=== PATIENT | female | born 2000 | race Caucasian/White ===

== ENCOUNTER 2020-09-22 21:26 | Emergency (ER) | payer OTHER ==
[~2020-09-22] VITALS: Ht 167.6 cm; Wt 77.3 kg
[2020-09-22 21:26] VITALS: BP 105/55
[2020-09-22] MEDS ORDERED: CALCTAB89 PO (21:34)
[2020-09-22] MEDS ORDERED: PREN1CHW PO (21:34)
== END 2020-09-22 22:53 | disposition home or self-care (01) ==
LOC: M ED 21:26
DX: J02.9 Acute pharyngitis, unspecified (principal); Z20.828 Contact with and (suspected) exposure to other viral communicable diseases; Z88.0 Allergy status to penicillin
CPT/HCPCS: 87880; 99284; U0003

== ENCOUNTER 2021-03-08 13:55 | Emergency (ER) | payer OTHER ==
[~2021-03-08] VITALS: Ht 167.6 cm; Wt 86.8 kg
[~2021-03-08 13:55] MED LIST: CALCTAB89 PO; PREN1CHW PO
[2021-03-08 13:56] VITALS: BP 114/62
[2021-03-08] MEDS ORDERED: LATU40TA PO (14:50)
[2021-03-08] MEDS ORDERED: LAMI25TA PO (14:54)
== END 2021-03-08 15:15 | disposition home or self-care (01) ==
LOC: M ED 13:55
DX: F33.9 Major depressive disorder, recurrent, unspecified (principal); S50.811A Abrasion of right forearm, initial encounter; S50.812A Abrasion of left forearm, initial encounter; X78.9XXA Intentional self-harm by unspecified sharp object, initial encounter; Y92.89 Other specified places as the place of occurrence of the external cause; Z79.899 Other long term (current) drug therapy

== ENCOUNTER → 2022-05-20 | Outpatient (CLI) | payer OTHER ==
[~2022-05-20] MED LIST changes: +CELE20TA PO; +CITA20TA7 PO; +FERR325T3 PO; +LAMI25TA PO; +LAMO100T3 PO; +LATU1TAB PO; +LATU40TA2 PO; +PARA1IUD IU
== END ==
LOC: M LABSMTC 09:24
PROVIDERS: ATTEND Anesthesiology
DX: Z01.812 Encounter for preprocedural laboratory examination (principal); Z20.822 Contact with and (suspected) exposure to COVID-19

== ENCOUNTER 2022-05-23 06:07 | Observation (INO) | payer OTHER ==
[2022-05-23] VITALS (7 sets, daily range): BP systolic 107–113; BP diastolic 56–73
[~2022-05-23] VITALS: Ht 167.6 cm; Wt 89.8 kg
[2022-05-23] MEDS ORDERED: LR 1,000 ML IV SCH ×2 (07:10→14:40)
[2022-05-23] MEDS ORDERED: HEPARIN SOD (PORCINE) 5000UNITS/ML 1ML VIAL/SYRINGE SQ ONE (07:10)
[2022-05-23] MEDS ORDERED: CLINDAMYCIN 900 MG in IV 1 EA IV ONE ×2 (07:55→20:00)
[2022-05-23] MEDS ORDERED: LIDOCAINE 2% 100MG/5ML SDV (FOR ANES.) As Ordered ONE ×3 (08:44→11:43)
[2022-05-23] MEDS ORDERED: ROCURONIUM BROMIDE 50 MG/5 ML VIAL As Ordered ONE ×2 (08:44→12:10)
[2022-05-23] MEDS ORDERED: propofoL 200 MG/20 ML VIAL As Ordered ONE ×2 (08:44→14:14)
[2022-05-23] MEDS ORDERED: dexameTHASONE 4 MG/ML 1ML VIAL (J1100 PER 1MG) As Ordered ONE (08:45)
[2022-05-23] MEDS ORDERED: ONDANSETRON 4MG/2ML VIAL As Ordered ONE ×2 (08:45→15:10)
[2022-05-23] MEDS ORDERED: fentaNYL 100 MCG/2 ML INJECTION As Ordered ONE ×3 (08:45→15:10)
[2022-05-23] MEDS ORDERED: MIDAZOLAM INJ 2MG/2ML VIAL (J2250 PER 1MG) As Ordered ONE (08:45)
[2022-05-23] MEDS ORDERED: LACRILUBE (AKWA TEARS) OPHTH OINT 3.5 GM As Ordered ONE (09:24)
[2022-05-23] MEDS ORDERED: BUPIVACAINE HCL 0.25% 30ML VIAL As Ordered ONE (09:55)
[2022-05-23] MEDS ORDERED: GENTAMICIN SULF 80MG/2ML VIAL As Ordered ONE (09:55)
[2022-05-23] MEDS ORDERED: LIDOCAINE 1% MDV 20ML VIAL As Ordered ONE (09:55)
[2022-05-23] MEDS ORDERED: EPINEPHrine INJ 1 MG/ML 1ML AMP As Ordered ONE (09:56)
[2022-05-23] MEDS ORDERED: BUPIVACAINE LIPOSOME/PF 1.3% 20ML VIAL (13.3MG/ML)(EXPAREL) As Ordered ONE (09:56)
[2022-05-23] MEDS ORDERED: KETOROLAC 60MG 2ML VIAL As Ordered ONE (10:29)
[2022-05-23] MEDS ORDERED: ACETAMINOPHEN 1000MG 100ML IV BTL (OFIRMEV) (J0131 PER 10MG) As Ordered ONE (14:17)
[2022-05-23] MEDS ORDERED: SUGAMMADEX SODIUM 500 MG/5 ML VIAL (BRIDION) As Ordered ONE (14:23)
[2022-05-23] MEDS ORDERED: METOCLOPRAMIDE INJ 10MG/2ML VIAL (J2765 PER 1) As Ordered ONE (14:23)
[2022-05-23] MEDS ORDERED: MORPHINE 2 MG/ML 1ML VIAL IV PRN (14:40)
[2022-05-23] MEDS ORDERED: ONDANSETRON 4MG/2ML VIAL IV PRN ×2 (14:40→15:15)
[2022-05-23] MEDS ORDERED: oxyCODONE 5MG TAB PO PRN (14:40)
[2022-05-23] MEDS: fentaNYL 100 MCG/2 ML INJECTION IV PRN ×2 (15:33→15:39)
[2022-05-23] MEDS: LR 1,000 ML IV SCH (17:13)
[2022-05-23] MEDS: ACETAMINOPHEN TAB 650MG DOSE (2X325MG) PO PRN (18:53)
[2022-05-23] MEDS: traMADol 50 MG TAB PO PRN (21:33)
[2022-05-24 01:00] VITALS: BP 106/55
[2022-05-24 02:00] VITALS: BP 109/61
[2022-05-24] MEDS: traMADol 50 MG TAB PO PRN (03:43)
[2022-05-24] MEDS: LR 1,000 ML IV SCH (05:24)
[2022-05-24] MEDS: ACETAMINOPHEN TAB 650MG DOSE (2X325MG) PO PRN (05:24)
[2022-05-24 06:00] VITALS: BP 117/67
[2022-05-24] MEDS ORDERED: MORPHINE 4 MG/ML 1ML VIAL/SYRINGE IV ONE (06:40)
[2022-05-24] MEDS ORDERED: PERCOCET 5MG/325MG TAB PO PRN ×2 (08:20)
[2022-05-24] MEDS ORDERED: PERCOCET PO (09:11)
[2022-05-24 10:00] VITALS: BP 116/61
== END 2022-05-24 12:57 | disposition home or self-care (01) ==
LOC: M SDC 06:07 → M MS5PR 06:08 → MERGE 07:30 → M MS5PR 15:55
PROVIDERS: ADMIT Plastic Surgery Surgery of the Hand; ATTEND Plastic Surgery Surgery of the Hand
DX: N62 Hypertrophy of breast (principal); F43.10 Post-traumatic stress disorder, unspecified; F41.9 Anxiety disorder, unspecified; F32.9 Major depressive disorder, single episode, unspecified; F12.10 Cannabis abuse, uncomplicated; Z88.0 Allergy status to penicillin; Z79.899 Other long term (current) drug therapy
CPT/HCPCS: 19318; 81025; 88300; 88305; 96365; 96375; C9290; J0131; J0171; J1100; J1580; J1644; J1885; J2250; J2270; J2405; J2765; J3010

== ENCOUNTER 2022-12-19 14:42 | Emergency (ER) | payer OTHER ==
[~2022-12-19] VITALS: Ht 167.6 cm; Wt 85.8 kg
[~2022-12-19 14:42] MED LIST changes: +PERCOCET PO
[2022-12-19 16:58] LABS: BASO % 0.4 % (0.0-1.0); EOS % 0.5 % (0.0-3.0); HEMATOCRIT 38.1 % (36.0-47.0); HEMOGLOBIN 12.4 g/dl (12.0-15.5); LYMPH # 1.9 10^3/uL (1.5-5.0); LYMPH % 25.5 % (24.0-44.0); MEAN CORPUSCULAR HEMOGLOBIN 28.9 pg (27.0-33.0); MEAN CORPUSCULAR HGB CONC 32.5 g/dl (32.0-36.5); MEAN CORPUSCULAR VOLUME 88.8 fl (80.0-96.0); MONO # 0.5 10^3/uL (0.0-0.8); NEUTROPHILS # 4.9 10^3/uL (1.5-8.5); NEUTROPHILS % 66.3 % (36.0-66.0); PLATELET COUNT, AUTOMATED 130 10^3/uL (150-450); RED BLOOD COUNT 4.29 10^6/uL (4.00-5.40); WHITE BLOOD COUNT 7.4 10^3/uL (4.0-10.0)
[2022-12-19 17:59] LABS: APPEARANCE, URINE MANUAL HAZY (CLEAR); BILIRUBIN, URINE MANUAL 1+ (NEGATIVE); BLOOD URINE MANUAL NEGATIVE (NEGATIVE); COLOR, URINE MANUAL DK YELLOW (YELLOW); GLUCOSE, URINE (UA) MANUAL NEGATIVE (NEGATIVE); KETONE, URINE MANUAL 2+ mg/dL (NEGATIVE); LEUKOCYTE ESTERASE, URINE MAN TRACE (NEGATIVE); NITRITE, URINE MANUAL NEGATIVE (NEGATIVE); PROTEIN, URINE MANUAL TRACE mg/dL (NEGATIVE); SPECIFIC GRAVITY,URINE MANUAL 1.025 (1.002-1.035); UROBILINOGEN, URINE MANUAL 4 MG mg/dl (NORMAL)
[2022-12-19 18:19] LABS: MUCUS, URINE MOD AMOUNT (NEGATIVE); RBC, URINE 0-1 /hpf (0-3); SQUAMOUS EPITHELIAL CELL URINE LARGE AMOUNT /hpf (SMALL AMT)
[2022-12-19 18:20] LABS: BACTERIA, URINE LARGE AMOUNT
[2022-12-19] MEDS ORDERED: ONDANSETRON 4MG ORAL DISINTEGRATING TAB PO ONE (19:55)
[2022-12-19 20:09] VITALS: BP 114/80
== END 2022-12-19 20:11 | disposition home or self-care (01) ==
LOC: M ED 14:42
DX: O26.851 Spotting complicating pregnancy, first trimester (principal); Z3A.10 10 weeks gestation of pregnancy

== ENCOUNTER → 2022-12-26 | Outpatient (CLI) | payer OTHER ==
[2022-12-26 18:24] LABS: HIV 1&2 SCREEN CENTAUR NEGATIVE (NEGATIVE)
[2022-12-26 18:32] LABS: HEPATITIS C VIRUS ABY INDEX < 0.0 INDEX (<0.8)
[2022-12-26 18:55] LABS: GC DNA AMPLIFICATION NEGATIVE (NEGATIVE)
== END ==
LOC: M PLALAB 14:27
PROVIDERS: ATTEND Advanced Practice Midwife
DX: Z34.91 Encounter for supervision of normal pregnancy, unspecified, first trimester (principal)

== ENCOUNTER → 2022-12-26 | Outpatient (CLI) | payer OTHER | LOC: M PLALAB 14:24 | PROVIDERS: ATTEND Advanced Practice Midwife | DX: Z3A.11 11 weeks gestation of pregnancy (principal) ==

== ENCOUNTER 2023-02-16 17:13 | Outpatient (CLI) | payer OTHER ==
[~2023-02-16] VITALS: Ht 167.6 cm; Wt 89.4 kg
[2023-02-16 17:48] VITALS: BP 107/55
[2023-02-16] MEDS ORDERED: PRENTAB9 PO (18:05)
[2023-02-16] MEDS ORDERED: CITA10TA7 PO (18:06)
[2023-02-16] MEDS ORDERED: HOME MED LIST COMPLETE! XX SCH (18:10)
[2023-02-16] MEDS ORDERED: CITA20TA6 PO (18:16)
[2023-02-16 18:18] VITALS: BP 115/66
[2023-02-16 19:07] VITALS: BP 107/56
[2023-02-16 19:24] LABS: APPEARANCE, URINE HAZY (CLEAR); BACTERIA, URINE AUTO NEGATIVE (NEGATIVE); BILIRUBIN, URINE AUTO NEGATIVE (NEGATIVE); BLOOD, URINE BLOOD NEGATIVE (NEGATIVE); COLOR, URINE STRAW (YELLOW); GLUCOSE, URINE (UA) AUTO NEGATIVE (NEGATIVE); KETONE, URINE AUTO NEGATIVE (NEGATIVE); LEUKOCYTE ESTERASE, URINE AUTO NEGATIVE (NEGATIVE); NITRITE, URINE AUTO NEGATIVE (NEGATIVE); PROTEIN, URINE AUTO NEGATIVE (NEGATIVE); RBC, URINE AUTO 1 /HPF (0-3); SPECIFIC GRAVITY URINE AUTO 1.005 (1.002-1.035); SQUAMOUS EPITHELIAL CELL UR AU 0 /HPF (0-6); UROBILINOGEN, URINE AUTO 0.2 mg/dL (0.0-2.0); WBC, URINE AUTO 0 /HPF (0-3)
[2023-02-19] MEDS ORDERED: FERR325T3 PO (00:16)
== END 2023-02-16 20:10 | disposition home or self-care (01) ==
LOC: M LDO 17:13
PROVIDERS: ATTEND Obstetrics & Gynecology
DX: O60.02 Preterm labor without delivery, second trimester (principal); O26.892 Other specified pregnancy related conditions, second trimester; N89.8 Other specified noninflammatory disorders of vagina; Z3A.18 18 weeks gestation of pregnancy
CPT/HCPCS: 76815; 81001; G0463

== ENCOUNTER 2023-02-18 17:03 | Outpatient (CLI) | payer OTHER ==
[~2023-02-18] VITALS: Ht 167.6 cm; Wt 86.8 kg
[~2023-02-18 17:03] MED LIST changes: +CITA10TA7 PO; +CITA20TA6 PO; +PRENTAB9 PO
[2023-02-18 17:16] VITALS: BP 128/81
[2023-02-18] MEDS ORDERED: ACET-897 PO (17:25)
[2023-02-18] MEDS ORDERED: HOME MED LIST COMPLETE! XX SCH (17:30)
[2023-02-18 19:14] LABS: HEMATOCRIT 32.7 % (36.0-47.0); HEMOGLOBIN 10.9 g/dl (12.0-15.5); MEAN CORPUSCULAR HEMOGLOBIN 30.2 pg (27.0-33.0); MEAN CORPUSCULAR HGB CONC 33.3 g/dl (32.0-36.5); MEAN CORPUSCULAR VOLUME 90.6 fl (80.0-96.0); PLATELET COUNT, AUTOMATED 139 10^3/uL (150-450); RED BLOOD COUNT 3.61 10^6/uL (4.00-5.40); WHITE BLOOD COUNT 8.7 10^3/uL (4.0-10.0)
[2023-02-18 20:21] LABS: GC DNA AMPLIFICATION NEGATIVE (NEGATIVE)
[2023-02-19] MEDS ORDERED: FERR325T3 PO (00:16)
== END 2023-02-18 20:07 | disposition home or self-care (01) ==
LOC: M LDO 17:03
PROVIDERS: ATTEND Obstetrics & Gynecology
DX: O26.852 Spotting complicating pregnancy, second trimester (principal); O99.342 Other mental disorders complicating pregnancy, second trimester; F41.9 Anxiety disorder, unspecified; F32.A Depression, unspecified; O71.7 Obstetric hematoma of pelvis; Z3A.19 19 weeks gestation of pregnancy
CPT/HCPCS: 85027; 87661; 87810; 87850; G0463

== ENCOUNTER 2023-02-25 12:52 | Outpatient (CLI) | payer OTHER ==
[~2023-02-25] VITALS: Ht 167.6 cm; Wt 87.8 kg
[~2023-02-25 12:52] MED LIST changes: +ACET-897 PO
[2023-02-25 13:15] VITALS: BP 113/57
[2023-02-25 14:01] VITALS: BP 124/57
[2023-02-25 16:09] LABS: BASO % 0.3 % (0.0-1.0); EOS % 0.5 % (0.0-3.0); HEMATOCRIT 32.1 % (36.0-47.0); HEMOGLOBIN 11.1 g/dl (12.0-15.5); LYMPH # 1.1 10^3/uL (1.5-5.0); LYMPH % 18.5 % (24.0-44.0); MEAN CORPUSCULAR HEMOGLOBIN 31.4 pg (27.0-33.0); MEAN CORPUSCULAR HGB CONC 34.6 g/dl (32.0-36.5); MEAN CORPUSCULAR VOLUME 90.9 fl (80.0-96.0); MONO # 0.7 10^3/uL (0.0-0.8); MONO % 10.7 % (2.0-8.0); NEUTROPHILS # 4.3 10^3/uL (1.5-8.5); NEUTROPHILS % 69.5 % (36.0-66.0); PLATELET COUNT, AUTOMATED 117 10^3/uL (150-450); RED BLOOD COUNT 3.53 10^6/uL (4.00-5.40); WHITE BLOOD COUNT 6.2 10^3/uL (4.0-10.0)
[2023-02-25 16:28] VITALS: BP 109/52
[2023-02-25 16:28] LABS: LIPASE 29 U/L (12-53)
[2023-02-25 16:40] LABS: ALBUMIN 2.9 G/DL (3.2-5.2); ALKALINE PHOSPHATASE 82 U/L (46-116); ALT/SGPT 30 U/L (7.0-40); AST/SGOT 19 U/L (<34); BILIRUBIN,TOTAL 0.4 MG/DL (0.3-1.2); BLOOD UREA NITROGEN < 5 MG/DL (9-23); CALCIUM LEVEL 8.8 MG/DL (8.5-10.1); CARBON DIOXIDE LEVEL 22 MMOL/L (20-31); CHLORIDE LEVEL 108 MMOL/L (98-107); CREATININE FOR GFR 0.41 MG/DL (0.55-1.30); GLOMERULAR FILTRATION RATE > 60.0 (>60); GLUCOSE, FASTING 81 MG/DL (60-100); SODIUM LEVEL 138 MMOL/L (136-145)
== END 2023-02-25 17:20 | disposition home or self-care (01) ==
LOC: M LDO 12:52
PROVIDERS: ATTEND Specialist
DX: O47.02 False labor before 37 completed weeks of gestation, second trimester (principal); Z3A.20 20 weeks gestation of pregnancy
CPT/HCPCS: 36415; 80053; 81001; 83690; 85025; G0463

== ENCOUNTER → 2023-02-28 | Outpatient (CLI) | payer OTHER | LOC: M WHC 13:02 | PROVIDERS: ATTEND Obstetrics & Gynecology | DX: Z34.92 Encounter for supervision of normal pregnancy, unspecified, second trimester (principal) ==

== ENCOUNTER 2023-03-27 14:16 | Outpatient (CLI) | payer OTHER ==
[~2023-03-27] VITALS: Ht 167.6 cm; Wt 94.3 kg
[2023-03-27 14:38] VITALS: BP 118/63
[2023-03-27] MEDS ORDERED: HOME MED LIST COMPLETE! XX SCH (14:40)
== END 2023-03-27 15:47 | disposition home or self-care (01) ==
LOC: M LDO 14:16
PROVIDERS: ATTEND Specialist
DX: O26.852 Spotting complicating pregnancy, second trimester (principal); O32.1XX9 Maternal care for breech presentation, other fetus; Z3A.24 24 weeks gestation of pregnancy
CPT/HCPCS: 59025; G0463

== ENCOUNTER → 2023-04-01 | Outpatient (CLI) | payer OTHER ==
[~2023-04-01] MED LIST changes: +ACET325C5 PO
[2023-04-01 14:23] LABS: BILIRUBIN,DIRECT 0.1 MG/DL (<0.4); BILIRUBIN,TOTAL 0.4 MG/DL (0.3-1.2); TOTAL PROTEIN 6.4 G/DL (5.7-8.2)
== END ==
LOC: M PLALAB 09:38
PROVIDERS: ATTEND Specialist
DX: K83.1 Obstruction of bile duct (principal)
CPT/HCPCS: 36415; 80076; 82239; G0463

== ENCOUNTER → 2023-04-09 | Outpatient (CLI) | payer OTHER ==
[~2023-04-09] MED LIST changes: -ACET325C5 PO
[2023-04-09 18:03] LABS: HEMATOCRIT 30.9 % (36.0-47.0); HEMOGLOBIN 10.2 g/dl (12.0-15.5); MEAN CORPUSCULAR HEMOGLOBIN 30.5 pg (27.0-33.0); MEAN CORPUSCULAR VOLUME 92.5 fl (80.0-96.0); PLATELET COUNT, AUTOMATED 147 10^3/uL (150-450); RED BLOOD COUNT 3.34 10^6/uL (4.00-5.40); WHITE BLOOD COUNT 8.4 10^3/uL (4.0-10.0)
[2023-04-09 19:32] LABS: GC DNA AMPLIFICATION NEGATIVE (NEGATIVE)
== END ==
LOC: M PLALAB 14:45
PROVIDERS: ATTEND Obstetrics & Gynecology
DX: Z34.82 Encounter for supervision of other normal pregnancy, second trimester (principal); Z3A.00 Weeks of gestation of pregnancy not specified

== ENCOUNTER 2023-04-17 15:04 | Outpatient (CLI) | payer OTHER ==
[~2023-04-17] VITALS: Ht 167.6 cm; Wt 96.8 kg
[2023-04-17 15:20] VITALS: BP 131/64
[2023-04-17] MEDS ORDERED: ACET325C5 PO (15:24)
[2023-04-17] MEDS ORDERED: HOME MED LIST COMPLETE! XX SCH (15:25)
[2023-04-17 17:42] VITALS: BP 131/60
[2023-04-17 18:17] VITALS: BP 123/59
== END 2023-04-17 18:20 | disposition home or self-care (01) ==
LOC: M LDO 15:04
PROVIDERS: ATTEND Obstetrics & Gynecology
DX: O99.342 Other mental disorders complicating pregnancy, second trimester (principal); F41.9 Anxiety disorder, unspecified; F32.A Depression, unspecified; Z04.1 Encounter for examination and observation following transport accident; Z3A.27 27 weeks gestation of pregnancy
CPT/HCPCS: 59025; 76815; G0463

== ENCOUNTER → 2023-04-30 | Outpatient (CLI) | payer OTHER ==
[~2023-04-30] MED LIST changes: +ACET325C5 PO
== END ==
LOC: M WHC 06:59
PROVIDERS: ATTEND Obstetrics & Gynecology
DX: Z36.2 Encounter for other antenatal screening follow-up (principal); Z3A.30 30 weeks gestation of pregnancy

== ENCOUNTER → 2023-05-12 | Outpatient (REF) | payer OTHER ==
[2023-05-12 18:30] LABS: APPEARANCE, URINE HAZY (CLEAR); BACTERIA, URINE AUTO NEGATIVE (NEGATIVE); BILIRUBIN, URINE AUTO NEGATIVE (NEGATIVE); BLOOD, URINE BLOOD NEGATIVE (NEGATIVE); COLOR, URINE YELLOW (YELLOW); GLUCOSE, URINE (UA) AUTO NEGATIVE (NEGATIVE); KETONE, URINE AUTO TRACE mg/dL (NEGATIVE); LEUKOCYTE ESTERASE, URINE AUTO NEGATIVE (NEGATIVE); MUCUS, URINE SMALL (NEGATIVE); NITRITE, URINE AUTO NEGATIVE (NEGATIVE); PROTEIN, URINE AUTO 1+ mg/dL (NEGATIVE); RBC, URINE AUTO 0 /HPF (0-3); SPECIFIC GRAVITY URINE AUTO 1.025 (1.002-1.035); SQUAMOUS EPITHELIAL CELL UR AU 23 /HPF (0-6); UROBILINOGEN, URINE AUTO 0.2 mg/dL (0.0-2.0); WBC, URINE AUTO 0 /HPF (0-3)
== END ==
LOC: M SFHCWAGY 17:36
PROVIDERS: ATTEND Obstetrics & Gynecology
DX: Z34.93 Encounter for supervision of normal pregnancy, unspecified, third trimester (principal)
CPT/HCPCS: 81001; 87086; 90471; 90715; G0463

== ENCOUNTER 2023-05-13 15:09 | Outpatient (CLI) | payer OTHER ==
[~2023-05-13] VITALS: Ht 167.6 cm; Wt 100.0 kg
[2023-05-13 15:24] VITALS: BP 122/56
[2023-05-13] MEDS ORDERED: HOME MED LIST COMPLETE! XX SCH (15:30)
== END 2023-05-13 17:56 | disposition home or self-care (01) ==
LOC: M LDO 15:09
PROVIDERS: ATTEND Obstetrics & Gynecology
DX: O47.03 False labor before 37 completed weeks of gestation, third trimester (principal); O26.893 Other specified pregnancy related conditions, third trimester; M54.50 Low back pain, unspecified; Z3A.31 31 weeks gestation of pregnancy
CPT/HCPCS: 59025; G0463

== ENCOUNTER 2023-05-23 12:52 | Outpatient (CLI) | payer OTHER ==
[~2023-05-23] VITALS: Ht 167.6 cm; Wt 101.8 kg
[2023-05-23 13:23] VITALS: BP 103/53
== END 2023-05-23 16:15 | disposition home or self-care (01) ==
LOC: M LDO 12:52
PROVIDERS: ATTEND Advanced Practice Midwife
DX: O26.893 Other specified pregnancy related conditions, third trimester (principal); N89.8 Other specified noninflammatory disorders of vagina; O47.03 False labor before 37 completed weeks of gestation, third trimester
CPT/HCPCS: 59025; G0463

== ENCOUNTER 2023-06-10 18:59 | Outpatient (CLI) | payer OTHER ==
[~2023-06-10] VITALS: Ht 167.6 cm; Wt 102.0 kg
[2023-06-10 19:21] VITALS: BP 113/56
[2023-06-10] MEDS ORDERED: TUMS500C PO (19:27)
[2023-06-10] MEDS ORDERED: BENA25CA4 PO (19:27)
[2023-06-10] MEDS ORDERED: HOME MED LIST COMPLETE! XX SCH (19:30)
[2023-06-10] MEDS ORDERED: LR 1,000 ML IV ONE (19:35)
[2023-06-10] MEDS ORDERED: PANTOPRAZOLE 40MG VIAL IV ONE (20:05)
[2023-06-10 20:31] LABS: HEMATOCRIT 30.2 % (36.0-47.0); HEMOGLOBIN 9.4 g/dl (12.0-15.5); MEAN CORPUSCULAR HEMOGLOBIN 26.7 pg (27.0-33.0); MEAN CORPUSCULAR HGB CONC 31.1 g/dl (32.0-36.5); MEAN CORPUSCULAR VOLUME 85.8 fl (80.0-96.0); PLATELET COUNT, AUTOMATED 149 10^3/uL (150-450); RED BLOOD COUNT 3.52 10^6/uL (4.00-5.40); WHITE BLOOD COUNT 8.3 10^3/uL (4.0-10.0)
[2023-06-10 20:41] LABS: PARTIAL THROMBOPLASTIN TIME 23.1 SECONDS (24.8-34.2); PROTHROMBIN TIME 13.4 SECONDS (12.5-14.5)
[2023-06-11 00:01] VITALS: BP 97/49
[2023-06-11] MEDS ORDERED: ACETAMINOPHEN 500 MG TAB PO ONE (02:00)
[2023-06-11 04:23] VITALS: BP 100/50
== END 2023-06-11 06:49 | disposition home or self-care (01) ==
LOC: M LDO 18:59 → M LDI 21:35 → M LDO 06-11 06:49
PROVIDERS: ATTEND Obstetrics & Gynecology
DX: O26.893 Other specified pregnancy related conditions, third trimester (principal); R10.13 Epigastric pain; O26.853 Spotting complicating pregnancy, third trimester; Z3A.36 36 weeks gestation of pregnancy; O71.89 Other specified obstetric trauma
CPT/HCPCS: 76815; 76820; 85027; 85384; 85610; 85730; 96374; C9113

== ENCOUNTER → 2023-06-18 | Outpatient (REF) | payer OTHER ==
[~2023-06-18] MED LIST changes: +BENA25CA4 PO; +TUMS500C PO
== END ==
LOC: M PLALAB 15:05
PROVIDERS: ATTEND Obstetrics & Gynecology
DX: Z34.90 Encounter for supervision of normal pregnancy, unspecified, unspecified trimester (principal)
CPT/HCPCS: 87081; G0463

== ENCOUNTER 2023-06-30 16:13 | Outpatient (CLI) | payer OTHER ==
[~2023-06-30] VITALS: Ht 167.6 cm; Wt 103.3 kg
[2023-06-30 16:27] VITALS: BP 118/73
[2023-06-30] MEDS ORDERED: HOME MED LIST COMPLETE! XX SCH (16:45)
[2023-06-30 17:12] VITALS: BP 124/58
[2023-06-30 19:24] LABS: APPEARANCE, URINE HAZY (CLEAR); BACTERIA, URINE AUTO NEGATIVE (NEGATIVE); BILIRUBIN, URINE AUTO NEGATIVE (NEGATIVE); BLOOD, URINE BLOOD NEGATIVE (NEGATIVE); COLOR, URINE YELLOW (YELLOW); GLUCOSE, URINE (UA) AUTO NEGATIVE (NEGATIVE); KETONE, URINE AUTO NEGATIVE (NEGATIVE); LEUKOCYTE ESTERASE, URINE AUTO NEGATIVE (NEGATIVE); MUCUS, URINE SMALL (NEGATIVE); NITRITE, URINE AUTO NEGATIVE (NEGATIVE); PROTEIN, URINE AUTO NEGATIVE (NEGATIVE); RBC, URINE AUTO 0 /HPF (0-3); SQUAMOUS EPITHELIAL CELL UR AU 12 /HPF (0-6); UROBILINOGEN, URINE AUTO 0.2 mg/dL (0.0-2.0); WBC, URINE AUTO 1 /HPF (0-3)
[2023-06-30 19:53] VITALS: BP 120/57
== END 2023-06-30 21:15 ==
LOC: M LDO 16:13
PROVIDERS: ATTEND Advanced Practice Midwife
DX: O26.893 Other specified pregnancy related conditions, third trimester (principal); N89.8 Other specified noninflammatory disorders of vagina; O36.8130 Decreased fetal movements, third trimester, not applicable or unspecified; O99.343 Other mental disorders complicating pregnancy, third trimester; F41.8 Other specified anxiety disorders; Z3A.38 38 weeks gestation of pregnancy
CPT/HCPCS: 59025; 76815; 76819; 76820; 81001; G0463

== ENCOUNTER 2023-07-01 17:41 | Outpatient (CLI) | payer OTHER ==
[~2023-07-01] VITALS: Ht 167.6 cm; Wt 102.7 kg
[2023-07-01 18:00] VITALS: BP 116/60
[2023-07-01] MEDS ORDERED: HOME MED LIST COMPLETE! XX SCH (18:00)
[2023-07-01 19:15] LABS: HEMATOCRIT 30.7 % (36.0-47.0); HEMOGLOBIN 9.8 g/dl (12.0-15.5); MEAN CORPUSCULAR HEMOGLOBIN 26.8 pg (27.0-33.0); MEAN CORPUSCULAR HGB CONC 31.9 g/dl (32.0-36.5); MEAN CORPUSCULAR VOLUME 83.9 fl (80.0-96.0); PLATELET COUNT, AUTOMATED 150 10^3/uL (150-450); RED BLOOD COUNT 3.66 10^6/uL (4.00-5.40); WHITE BLOOD COUNT 8.9 10^3/uL (4.0-10.0)
[2023-07-01 20:24] VITALS: BP 117/64
== END 2023-07-01 20:40 | disposition home or self-care (01) ==
LOC: M LDO 17:41
PROVIDERS: ATTEND Obstetrics & Gynecology
DX: O26.853 Spotting complicating pregnancy, third trimester (principal); Z3A.38 38 weeks gestation of pregnancy
CPT/HCPCS: 36415; 59025; 85027; 85384; 85460; G0463

== ENCOUNTER 2023-07-03 19:00 | Outpatient (CLI) | payer OTHER ==
[~2023-07-03] VITALS: Ht 167.6 cm; Wt 101.0 kg
[2023-07-03 19:22] VITALS: BP 102/53
[2023-07-03] MEDS ORDERED: HOME MED LIST COMPLETE! XX SCH (19:25)
== END 2023-07-03 21:53 | disposition home or self-care (01) ==
LOC: M LDO 19:00
PROVIDERS: ATTEND Obstetrics & Gynecology
DX: O47.1 False labor at or after 37 completed weeks of gestation (principal); O99.343 Other mental disorders complicating pregnancy, third trimester; F41.8 Other specified anxiety disorders; Z3A.38 38 weeks gestation of pregnancy
CPT/HCPCS: 59025; G0463

== ENCOUNTER 2023-07-07 08:05 | Inpatient (IN) | payer OTHER ==
[~2023-07-07] VITALS: Ht 167.6 cm; Wt 104.1 kg
[2023-07-07] VITALS (18 sets, daily range): BP systolic 104–122; BP diastolic 51–78
[2023-07-07] MEDS ORDERED: PRENTAB9 PO (08:23)
[2023-07-07] MEDS ORDERED: HOME MED LIST COMPLETE! XX SCH (08:25)
[2023-07-07] MEDS ORDERED: OXYTOCIN INJ 10UNITS/ML 1ML VIAL IM PRN (09:35)
[2023-07-07] MEDS ORDERED: CARBOPROST TROMETHAMINE 250 MCG/ML AMP IM PRN (09:35)
[2023-07-07] MEDS ORDERED: TRANEXAMIC ACID INJection 1,000 MG in NS 100 ML IV PRN (09:35)
[2023-07-07] MEDS ORDERED: OXYTOCIN DRIP 30 UNITS in IV 1 EA IV PRN ×4 (09:35)
[2023-07-07] MEDS ORDERED: LIDOCAINE 1% MDV 20ML VIAL INFIL PRN (09:35)
[2023-07-07] MEDS ORDERED: METHYLERGONOVINE MALEATE 0.2MG/ML 1ML VIAL IM PRN (09:35)
[2023-07-07 10:41] LABS: HEMATOCRIT 29.8 % (36.0-47.0); HEMOGLOBIN 9.3 g/dl (12.0-15.5); MEAN CORPUSCULAR HEMOGLOBIN 26.1 pg (27.0-33.0); MEAN CORPUSCULAR HGB CONC 31.2 g/dl (32.0-36.5); MEAN CORPUSCULAR VOLUME 83.7 fl (80.0-96.0); PLATELET COUNT, AUTOMATED 138 10^3/uL (150-450); RED BLOOD COUNT 3.56 10^6/uL (4.00-5.40); WHITE BLOOD COUNT 8.1 10^3/uL (4.0-10.0)
[2023-07-07] MEDS: miSOPROStol 50MCG 1/2 TABLET PO SCH ×2 (10:53→14:57)
[2023-07-07] MEDS ORDERED: LURASIDONE HCL 40MG TAB (LATUDA) PO SCH (18:00)
[2023-07-07] MEDS ORDERED: OXYTOCIN DRIP 30 UNITS in IV 1 EA IV SCH (18:40)
[2023-07-07] MEDS ORDERED: LR 1,000 ML IV SCH (18:40)
[2023-07-07] MEDS: CitaloPRAM (CeleXA) 20 MG TAB PO SCH (22:10)
[2023-07-07] MEDS: LURASIDONE HCL 40MG TAB (LATUDA) PO SCH (22:11)
[2023-07-07] MEDS ORDERED: ONDANSETRON 4MG 2ML VIAL IV SCH (23:15)
[2023-07-08] VITALS (21 sets, daily range): BP systolic 103–172; BP diastolic 51–120
[2023-07-08] MEDS ORDERED: FENTANYL/ROPIVACAINE/NACL BAG 100 ML EPIDURAL SCH (01:30)
[2023-07-08] MEDS ORDERED: EPIDURAL/PCA KEYS XX PRN (01:30)
[2023-07-08] MEDS ORDERED: LR 500 ML IV PRN (01:30)
[2023-07-08] MEDS ORDERED: ePHEDrine SULFATE 25 MG/5 ML(5MG/ML) SYRINGE IVP PRN (01:30)
[2023-07-08] MEDS ORDERED: diphenhydrAMINE 50MG/ML VIAL IV PRN (01:30)
[2023-07-08] MEDS ORDERED: ONDANSETRON 4MG 2ML VIAL IV PRN (01:30)
[2023-07-08] MEDS ORDERED: NALOXONE INJ 0.4MG/1ML VIAL IV PRN (01:30)
[2023-07-08] MEDS ORDERED: METHYLERGONOVINE MALEATE 0.2 MG TAB PO PRN (05:00)
[2023-07-08] MEDS ORDERED: RHOGAM 300MCG (1500IU) INJ IM SCH (05:00)
[2023-07-08] MEDS ORDERED: ACETAMINOPHEN TAB 650MG DOSE (2X325MG) PO PRN (05:00)
[2023-07-08] MEDS ORDERED: IBUPROFEN 600MG TAB PO PRN (05:00)
[2023-07-08] MEDS ORDERED: DIBUCAINE 1% OINTMENT 30GM TOP PRN (05:00)
[2023-07-08] MEDS: PRENATAL VITAMINS CHEWABLE TABLET PO SCH (09:00)
[2023-07-08] MEDS: CitaloPRAM (CeleXA) 20 MG TAB PO SCH (21:50)
[2023-07-08] MEDS: LURASIDONE HCL 40MG TAB (LATUDA) PO SCH (21:51)
[2023-07-08] MEDS: DOCUSATE SODIUM 100MG CAPSULE PO PRN (21:51)
[2023-07-08] MEDS: ACETAMINOPHEN 500 MG TAB PO PRN (21:52)
[2023-07-09 06:00] VITALS: BP 110/58; O2SAT 97
[2023-07-09] MEDS: PRENATAL VITAMINS CHEWABLE TABLET PO SCH (08:18)
[2023-07-09] MEDS: IBUPROFEN 800 MG TAB PO PRN ×2 (08:21→18:29)
[2023-07-09 18:00] VITALS: BP 118/60; O2SAT 97
[2023-07-09] MEDS: ACETAMINOPHEN 500 MG TAB PO PRN (19:45)
[2023-07-09] MEDS: CitaloPRAM (CeleXA) 20 MG TAB PO SCH (21:00)
[2023-07-09] MEDS: LURASIDONE HCL 40MG TAB (LATUDA) PO SCH (21:01)
[2023-07-09] MEDS: DOCUSATE SODIUM 100MG CAPSULE PO PRN (21:04)
[2023-07-10] MEDS: IBUPROFEN 800 MG TAB PO PRN (02:33)
[2023-07-10 06:00] VITALS: BP 103/55; O2SAT 97
[2023-07-10] MEDS ORDERED: ACETAMINOPHEN 500 MG TAB PO PRN (08:05)
[2023-07-10] MEDS: PRENATAL VITAMINS CHEWABLE TABLET PO SCH (08:36)
[2023-07-10] MEDS: ACETAMINOPHEN 500 MG TAB PO PRN (08:38)
[2023-07-10] MEDS ORDERED: MEASLES,MUMPS,RUBELLA VACCINE INJ (MMR-II) SC.IMMUN ONE (09:00)
== END 2023-07-10 12:14 | disposition home or self-care (01) | DRG 807 ==
LOC: M LDI 08:05 → M OBS 07-08 06:40
PROVIDERS: ADMIT Advanced Practice Midwife; ATTEND Advanced Practice Midwife
PROC: 3E0P7GC Introduction of Other Therapeutic Substance into Female Reproductive, Via Natural or Artificial Opening (ICD-10-PCS; 2023-07-07)
PROC: 10907ZC Drainage of Amniotic Fluid, Therapeutic from Products of Conception, Via Natural or Artificial Opening (ICD-10-PCS; 2023-07-07)
PROC: 10E0XZZ Delivery of Products of Conception, External Approach (ICD-10-PCS; principal; 2023-07-08)
DX: O99.12 Other diseases of the blood and blood-forming organs and certain disorders involving the immune mechanism complicating childbirth (principal); Z37.0 Single live birth; D69.6 Thrombocytopenia, unspecified; Z3A.39 39 weeks gestation of pregnancy

== ENCOUNTER → 2025-02-10 | Outpatient (REF) | payer OTHER ==
[~2025-02-10] MED LIST changes: +ABIL10TA9; +LAMO200T3
[2025-02-12 13:01] LABS: HPV APTIMA Not Detected (Not Detected)
== END ==
LOC: M SFHCWAGY 10:12
PROVIDERS: ATTEND Obstetrics & Gynecology
DX: Z12.4 Encounter for screening for malignant neoplasm of cervix (principal)

== ENCOUNTER → 2025-02-10 | Outpatient (CLI) | payer OTHER | LOC: M WHC 08:35 | PROVIDERS: ATTEND Obstetrics & Gynecology | DX: Z53.9 Procedure and treatment not carried out, unspecified reason (principal) ==

== ENCOUNTER → 2025-02-10 | Outpatient (REF) ==
[2025-02-10 20:41] LABS: COLLAGEN EPINEPHRINE 203 SECONDS (74-162)
[2025-02-10 21:10] LABS: COLLAGEN ADP 115 SECONDS (56-103)
== END ==
LOC: M CAHLAB 09:13
DX: Z01.89 Encounter for other specified special examinations (principal)